=== PATIENT | male | born 1990 | race Hispanic/Latino ===

== ENCOUNTER 2021-06-14 20:29 | Emergency (ER) | payer SELFPAY ==
[~2021-06-14] VITALS: Ht 165.1 cm; Wt 93.0 kg
== END 2021-06-14 21:36 | disposition home or self-care (01) ==
LOC: FSED 20:35
DX: M94.0 Chondrocostal junction syndrome [Tietze] (principal); F17.210 Nicotine dependence, cigarettes, uncomplicated
CPT/HCPCS: 99282